=== PATIENT | female | born 1990 | race Hispanic/Latino ===

== ENCOUNTER 2018-04-18 07:39 | Emergency (ER) | payer BC, SELFPAY ==
[2018-04-18 08:30] LABS: Absolute Lymphocytes (CBC) 1.2 K/uL (0.7-4.9); Absolute Monocytes 0.5 K/uL (0.1-1.3); Basophils % 0.6 % (0-1.3); Eosinophils % 0.5 % (0-4.4); Hematocrit 40.8 % (36.0-45.0); Lymphocytes % 10.9 % (15.3-44.8); MCH 31.7 pg (27.0-35.0); MCV 91.3 fL (80-100); MPV 9.7 fL (7.6-11.3); Monocytes % 4.6 % (3.3-12.3); RBC Red Blood Cell Count 4.47 M/uL (3.86-4.86)
[2018-04-18 08:31] LABS: Potassium 3.5 mEq/L (3.6-5.0)
[2018-04-18 08:38] LABS: Albumin 4.4 g/dL (3.2-5.5); Bilirubin Direct 0.1 mg/dL (0-0.2); Protein, Total 7.6 g/dL (6.0-8.3)
[2018-04-18 08:50] LABS: Urine Blood 3+ (NEG); Urine Glucose NEGATIVE (NEG); Urine Protein 2+ (NEG); Urine Specific Gravity >1.030 (1.005-1.030)
[2018-04-18] MEDS ORDERED: CEFTRIAXONE/SWI 1gm 1 GM/10 ML SYR ONE (08:52)
--- NOTE | 2018-04-18 09:11 | RAD REPORT ---
EXAM DESCRIPTION: CT - Stone Protocol - 04/18/2018 8:55 am CLINICAL HISTORY: Right flank pain, nausea and vomiting, dysuria, history of kidney stones COMPARISON: None. TECHNIQUE: Axial 5 mm thick images were obtained without oral or IV contrast. The [id number] span s the entirety of the system partially obscuring uppermost abdomen and lung bases. All CT scans are performed using dose optimization technique as appropriate and may include automated exposure control or mA/KV adjustment according to patient size. FINDINGS: Moderate severity right-sided hydronephrosis is present secondary to a 5 mm stone at the U VJ. Stone lodged colitis is to the bladder wall or may be partially protruding into the lumen of the urinary bladder. No left-sided hydronephrosis. No additional right-sided calculi. There is a punctate 1 mm calyx calcification on the left. No suspicious renal masses. Isodense masses and pyelonephritis are not excluded on a stone protocol CT scan. Urinary bladder is mostly contracted limiting assessme nt. Hare do appear to be slightly thickened and shaggy in appearance. Cystitis would be possible. Imaged portions of the liver, spleen and pancreas show no suspicious findings on non-contrast imaging . No gallbladder or biliary tree abnormality identified. No significant adrenal finding. No suspicious bowel findings. Uterus shows a prominent lobulated contour without overall enlargement of the uterus. This is likely a multi fibroid uterus. Ovaries appear to be within normal limits. Ovar ies and uterus are generally isodense to the surrounding on opacified small bowel loops and not fully assessed. No hernia, mass or bulky lymphadenopathy noted. No free air, free fluid or pneumatosis. No significant bony abnormality. IMPRESSION: Moderate severity right-sided hydronephrosis secondary to a 5 mm stone at the UVJ. Calci fication is within the bladder wall protruding somewhat into the lumen of the bladder. Punctate 1 mm calyx calcification on the left with no left-sided hydronephrosis. Isodense masses and pyelonephritis are not excluded on stone protocol technique. Hare of the contracted urinary bladder are slightly thickened and shaggy. This is likely artifact of contraction. Cystitis is not excluded.
[2018-04-18 09:22] LABS: Urine Bacteria >50 /HPF (<20); Urine Culture Reflex Order NOT NEEDED; Urine RBC >50 /HPF (NONE SEEN)
--- NOTE | 2018-04-18 09:31 | ER ---
Nurse's Notes [facility] Name: Francisco Palomino Age: 28 yrs Sex: Female : 1990 Arrival Date: 04/18/2018 Time: 07:42 Bed 13 Private MD: Out, [facility] Diagnosis: Abdominal tenderness;Hydronephrosis with renal and ureteral calculous obstruction;Hypokalemia Presentation: 04/18 07:56 Presenting complaint: Patient states: has had right flank pain, nausea, vomiting since iw this morning, also c/o urinary frequency since this a.m., has hx of kidney stones, feels similar. Transition of care: patient was not received from another setting of care. Onset of symptoms was April 18, 2018. Risk Assessment: Do you want to hurt yourself or someone else? Patient reports no desire to harm self or others. Initial Sepsis Screen: Does the patient meet any 2 criteria? No. Patient's initial sepsis screen is negative. Does the patient have a suspected source of infection? No. Patient's initial sepsis screen is negative. Care prior to arrival: None. 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 - Social history:: Smoking status: Patient/guardian denies using tobacco. - Ebola Screening: : Patient negative for fever greater than or equal to 101.5 degrees Fahrenheit, and additional compatible Ebola Virus Disease symptoms Patient denies exposure to infectious person Patient denies travel to an Ebola-affected area in the 21 days before illness onset No symptoms or risks identified at this time. - Family history:: not pertinent. Screenin:45 Abuse screen: Denies threats or abuse. Denies injuries from another. Nutritional ph screening: No deficits noted. Tuberculosis screening: No symptoms or risk factors identified. Fall Risk None identified. Assessment: 08:30 General: Appears in no apparent distress. comfortable, slender, well groomed, Behavior ph is calm, cooperative, appropriate for age, Denies fever, feeling ill. Pain: Complains of pain in right low back Pain radiates to right lower quadrant Pain currently is 5 out of 10 on a pain scale. Neuro: Level of Consciousness is awake, alert, obeys commands, Oriented to person, place, time, situation. Cardiovascular: Capillary refill < 3 seconds Patient's skin is warm and dry. Respiratory: Airway is patent Respiratory effort is even, unlabored, Respiratory pattern is regular, symmetrical. GI: Abdomen is flat, non-distended, Bowel sounds present X 4 quads. Abd is soft and non tender X 4 quads. Reports lower abdominal pain, nausea, vomiting, Patient currently denies diarrhea. : Reports burning with urination, pain in right flank(s), lower quadrant(s) with urination, urinary frequency. Derm: Skin is intact, is healthy with good turgor, Skin is pink, warm \\T\\ dry. Musculoskeletal: Circulation, motion, and sensation intact. Range of motion: intact in all extremities. 08:46 Reassessment: Patient appears in no apparent distress at this time. Patient and/or ph family updated on plan of care and expected duration. Pain level reassessed. Patient is alert, oriented x 3, equal unlabored respirations, skin warm/dry/pink. Pt reports that pain has improved to 1/10, denies nausea, awaiting CT scan, family at bedside. 10:15 Reassessment: Patient appears in no apparent distress at this time. Patient and/or ph family updated on plan of care and expected duration. Pain level reassessed. Patient is alert, oriented x 3, equal unlabored respirations, skin warm/dry/pink. Pt reports that pain remains 1/10 and denies nausea, discharged home with family. Vital Signs: 07:58 BP 126 / 90; Pulse 82; Resp 18 S; Temp 97.6; Pulse Ox 100% on R/A; Weight 54.43 kg; iw Height 4 ft. 11 in. (149.86 cm); Pain 10/10; 08:45 BP 111 / 99; Pulse 79; Resp 18; Pulse Ox 99% on R/A; ph 10:15 BP 115 / 87; Pulse 76; Resp 18; Temp 97.3; Pulse Ox 99% on R/A; Pain 1/10; ph 07:58 Body Mass Index 24.24 (54.43 kg, 149.86 cm) iw ED Course: 07:42 Patient arrived in ED. sb2 07:43 Out, of [facility] is Private Physician. sb2 07:48 Franklyn Kim MD is Attending Physician. josé miguel 07:57 Triage completed. iw 07:58 Arm band placed on. iw 08:02 Qing German, RN is Primary Nurse. ph 08:10 Radiology exam delayed due to test not completed at this time. eh 08:25 Initial lab(s) drawn, by me, sent to lab. Inserted saline lock: 20 gauge in right ph antecubital area, using aseptic technique. Blood collected. 08:44 CT completed. Patient tolerated procedure well. Patient moved to CT via wheelchair. Patient moved back from CT. 08:45 Patient has correct armband on for positive identification. Placed in gown. Bed in low ph position. Call light in reach. Side rails up X 1. Pulse ox on. NIBP on. Warm blanket given. 08:55 CT Stone Protocol In Process Unspecified. EDMS 09:29 Mansi Galan MD is Referral Physician. josé miguel 10:15 No provider procedures requiring assistance completed. IV discontinued, intact, ph bleeding controlled, No redness/swelling at site. Pressure dressing applied. Administered Medications: 08:33 Drug: NS 0.9% 1000 ml Route: IV; Rate: 1 bolus; Site: right antecubital; ph 10:14 Follow up: Response: No adverse reaction; IV Status: Completed infusion ph 08:33 Drug: TORadol 30 mg Route: IVP; Site: right antecubital; ph 08:41 Follow up: Response: No adverse reaction; Pain is decreased ph 08:34 Drug: Zofran 4 mg Route: IVP; Site: right antecubital; ph 08:40 Follow up: Response: No adverse reaction; Nausea is decreased ph 10:00 Drug: Rocephin - (cefTRIAXone) 1 grams Route: IVPB; Infused Over: 30 mins; Site: right ph antecubital; 10:14 Follow up: Response: No adverse reaction; IV Status: Completed infusion ph 10:00 Drug: Potassium Chloride 20 mEq Route: PO; ph 10:14 Follow up: Response: No adverse reaction ph 10:00 Drug: Flomax 0.4 mg Route: PO; ph 10:14 Follow up: Response: No adverse reaction ph Outcome: 09:29 Discharge ordered by . josé miguel 10:16 Discharged to home ambulatory, with family. ph 10:16 Condition: good 10:16 Discharge instructions given to patient, Instructed on discharge instructions, follow up and referral plans. medication usage, Demonstrated understanding of instructions, follow-up care, medications, Prescriptions given X 3. 10:16 Patient left the ED. ph Addendum: 04/22/2018 07:44 Addendum: Culture Results: Positive urine culture. No further action required. Bacteria f c sensitive to prescribed antibiotic. Signatures: Dispatcher [employer] EDMS Franklyn Kim MD MD cha Hagler, Pratibha Ya Felicia RN RN Maricruz Brantley RN RN iw Hall, Patricia, RN RN lilia Marvin, Tabitha stone2
--- NOTE | 2018-04-18 09:31 | EDPHYS ---
Physician Documentation [facility] Name: Francisco Palomino Age: 28 yrs Sex: Female : 1990 Arrival Date: 04/18/2018 Time: 07:42 Bed 13 Private MD: Out, [facility] ED Physician Franklyn Kim HPI: 04/18 08:07 This 28 yrs old Female presents to ER via Ambulatory with complaints of josé miguel Abdominal Pain. 08:07 The patient complains of pain in the right mid back and right low back. The pain josé miguel radiates to the right mid back and right low back. Onset: The symptoms/episode began/occurred 1 week(s) ago. Modifying factors: The symptoms are alleviated by nothing. the symptoms are aggravated by nothing. Associated signs and symptoms: The patient has no apparent associated signs or symptoms. Severity of pain: At its worst the pain was mild moderate. The patient has not experienced similar symptoms in the past. 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 - Social history:: Smoking status: Patient/guardian denies using tobacco. - Ebola Screening: : Patient negative for fever greater than or equal to 101.5 degrees Fahrenheit, and additional compatible Ebola Virus Disease symptoms Patient denies exposure to infectious person Patient denies travel to an Ebola-affected area in the 21 days before illness onset No symptoms or risks identified at this time. - Family history:: not pertinent. ROS: 08:07 Constitutional: Negative for fever, chills, and weight loss, Eyes: Negative for injury, josé miguel pain, redness, and discharge, ENT: Negative for injury, pain, and discharge, Neck: Negative for injury, pain, and swelling, Cardiovascular: Negative for chest pain, palpitations, and edema, Respiratory: Negative for shortness of breath, cough, wheezing, and pleuritic chest pain, Abdomen/GI: Negative for abdominal pain, nausea, vomiting, diarrhea, and constipation, : Negative for injury, bleeding, discharge, and swelling, MS/Extremity: Negative for injury and deformity, Skin: Negative for injury, rash, and discoloration, Neuro: Negative for headache, weakness, numbness, tingling, and seizure, Psych: Negative for depression, anxiety, suicide ideation, homicidal ideation, and hallucinations, Allergy/Immunology: Negative for hives, rash, and allergies, Endocrine: Negative for neck swelling, polydipsia, polyuria, polyphagia, and marked weight changes, Hematologic/Lymphatic: Negative for swollen nodes, abnormal bleeding, and unusual bruising. 08:07 Back: Positive for pain at rest, flank pain. Exam: 08:07 Constitutional: This is a well developed, well nourished patient who is awake, alert, josé miguel and in no acute distress. Head/Face: Normocephalic, atraumatic. Eyes: Pupils equal round and reactive to light, extra-ocular motions intact. Lids and lashes normal. Conjunctiva and sclera are non-icteric and not injected. Cornea within normal limits. Periorbital areas with no swelling, redness, or edema. ENT: Nares patent. No nasal discharge, no septal abnormalities noted. Tympanic membranes are normal and external auditory canals are clear. Oropharynx with no redness, swelling, or masses, exudates, or evidence of obstruction, uvula midline. Mucous membranes moist. Neck: Trachea midline, no thyromegaly or masses palpated, and no cervical lymphadenopathy. Supple, full range of motion without nuchal rigidity, or vertebral point tenderness. No Meningismus. Chest/axilla: Normal chest wall appearance and motion. Nontender with no deformity. No lesions are appreciated. Cardiovascular: Regular rate and rhythm with a normal S1 and S2. No gallops, murmurs, or rubs. Normal PMI, no JVD. No pulse deficits. Respiratory: Lungs have equal breath sounds bilaterally, clear to auscultation and percussion. No rales, rhonchi or wheezes noted. No increased work of breathing, no retractions or nasal flaring. Abdomen/GI: Soft, non-tender, with normal bowel sounds. No distension or tympany. No guarding or rebound. No evidence of tenderness throughout. Skin: Warm, dry with normal turgor. Normal color with no rashes, no lesions, and no evidence of cellulitis. MS/ Extremity: Pulses equal, no cyanosis. Neurovascular intact. Full, normal range of motion. Neuro: Awake and alert, GCS 15, oriented to person, place, time, and situation. Cranial nerves II-XII grossly intact. Motor strength 5/5 in all extremities. Sensory grossly intact. Cerebellar exam normal. Normal gait. Psych: Awake, alert, with orientation to person, place and time. Behavior, mood, and affect are within normal limits. 08:07 Back: pain, that is mild, that is moderate, ROM is normal, normal spinal alignment noted, CVA tenderness, that is mild, that is moderate, is noted on the right. Vital Signs: 07:58 BP 126 / 90; Pulse 82; Resp 18 S; Temp 97.6; Pulse Ox 100% on R/A; Weight 54.43 kg; iw Height 4 ft. 11 in. (149.86 cm); Pain 10/10; 08:45 BP 111 / 99; Pulse 79; Resp 18; Pulse Ox 99% on R/A; ph 10:15 BP 115 / 87; Pulse 76; Resp 18; Temp 97.3; Pulse Ox 99% on R/A; Pain 1/10; ph 07:58 Body Mass Index 24.24 (54.43 kg, 149.86 cm) iw MDM: 07:49 Patient medically screened. [facility] 04/18 07:55 Order name: Amylase, Serum; Complete Time: 08:51 [facility] 04/18 07:55 Order name: Basic Metabolic Panel; Complete Time: 08:51 [facility] 04/18 07:55 Order name: CBC with Diff; Complete Time: 08:51 [facility] 04/18 07:55 Order name: Creatinine for Radiology; Complete Time: 08:51 [facility] 04/18 07:55 Order name: Hepatic Function; Complete Time: 08:51 [facility] 04/18 07:55 Order name: Lipase; Complete Time: 08:51 [facility] 04/18 07:55 Order name: Urine Microscopic Only; Complete Time: 09:29 [facility] 04/18 08:07 Order name: CT Stone Protocol; Complete Time: 09:29 [facility] 04/18 08:10 Order name: Urine Culture 04/18 08:38 Order name: Urine Dipstick--Ancillary (enter results); Complete Time: 08:51 [facility] 04/18 08:38 Order name: Urine --Ancillary (enter results); Complete Time: 08:51 [facility] 04/18 07:55 Order name: Urine Test (obtain specimen); Complete Time: 08:34 [facility] 04/18 07:55 Order name: IV Saline Lock; Complete Time: 08: [facility] 04/18 07:55 Order name: Labs collected and sent; Complete Time: 08: [facility] 04/18 07:55 Order name: Urine Dipstick-Ancillary (obtain specimen); Complete Time: 08:34 [facility] Administered Medications: 08:33 Drug: NS 0.9% 1000 ml Route: IV; Rate: 1 bolus; Site: right antecubital; ph 10:14 Follow up: Response: No adverse reaction; IV Status: Completed infusion ph 08:33 Drug: TORadol 30 mg Route: IVP; Site: right antecubital; ph 08:41 Follow up: Response: No adverse reaction; Pain is decreased ph 08:34 Drug: Zofran 4 mg Route: IVP; Site: right antecubital; ph 08:40 Follow up: Response: No adverse reaction; Nausea is decreased ph 10:00 Drug: Rocephin - (cefTRIAXone) 1 grams Route: IVPB; Infused Over: 30 mins; Site: right ph antecubital; 10:14 Follow up: Response: No adverse reaction; IV Status: Completed infusion ph 10:00 Drug: Potassium Chloride 20 mEq Route: PO; ph 10:14 Follow up: Response: No adverse reaction ph 10:00 Drug: Flomax 0.4 mg Route: PO; ph 10:14 Follow up: Response: No adverse reaction ph Disposition: 04/18/18 09:29 Discharged to Home. Impression: Abdominal tenderness, Hydronephrosis with renal and ureteral calculous obstruction, Hypokalemia. - Condition is Stable. - Discharge Instructions: Abdominal Pain, Adult, Potassium Content of Foods, Kidney Stones, Nausea and Vomiting, Kidney Stones, [id number], Abdominal Pain, Adult, [id number], Hydronephrosis. - Prescriptions for Cipro 250 mg Oral Tablet - take 1 tablet by ORAL route every 12 hours; 14 tablet. Tylenol- Codeine #3 300-30 mg Oral Tablet - take 2 tablet by ORAL route every 6 hours As needed; 30 tablet. Flomax 0.4 mg Oral Capsule, Sust. Release 24 hr - take 1 capsule by ORAL route once daily 1/2 hour following the same meal each day; 30 capsule. - Medication Reconciliation Form, Thank You Letter, Antibiotic Education, Prescription Opioid Use form. - Follow up: Private Physician; When: 2 - 3 days; Reason: Recheck today's complaints, Continuance of care, Re-evaluation by your physician. Follow up: Mansi Galan; When: 2 - 3 days; Reason: Recheck today's complaints, Re-evaluation by your physician. - Problem is new. - Symptoms have improved. Signatures: Dispatcher [employer] EDFranklyn Wakefield MD MD cha Williams, Irene, RN RN iw Qing German RN RN ph Corrections: (The following items were deleted from the chart) 10:16 09:29 04/18/2018 09:29 Discharged to Home. Impression: Abdominal tenderness; ph Hydronephrosis with renal and ureteral calculous obstruction; Hypokalemia. Condition is Stable. Discharge Instructions: Abdominal Pain, Adult, Kidney Stones, Nausea and Vomiting, Kidney Stones, [id number], Abdominal Pain, Adult, [id number], Hydronephrosis. Prescriptions for Cipro 250 mg Oral Tablet - take 1 tablet by ORAL route every 12 hours; 14 tablet, Tylenol-Codeine #3 300-30 mg Oral Tablet - take 2 tablet by ORAL route every 6 hours As needed; 30 tablet, Flomax 0.4 mg Oral Capsule, Sust. Release 24 hr - take 1 capsule by ORAL route once daily 1/2 hour following the same meal each day; 30 capsule. and Forms are Medication Reconciliation Form, Thank You Letter, Antibiotic Education, Prescription Opioid Use. Follow up: Private Physician; When: 2 - 3 days; Reason: Recheck today's complaints, Continuance of care, Re-evaluation by your physician. Follow up: Mansi Galan; When: 2 - 3 days; Reason: Recheck today's complaints, Re-evaluation by your physician. Problem is new. Symptoms have improved. josé miguel
[2018-04-18] MEDS ORDERED: TAMSULOSIN 0.4 MG SR CAP ONE (09:50)
[2018-04-18] MEDS ORDERED: POTASSIUM CL SA 10 MEQ TAB PO ONE (09:50)
[2018-04-18] MEDS ORDERED: MAGNESIUM SULFATE 1 gm IVPB 1 GM/100 ML BAG IV ONE (10:09)
[2018-04-18] MEDS ORDERED: NS KCL 20MEQ 1,000 ML IV ONE (10:09)
[2018-04-18] MEDS ORDERED: NA CHLORIDE 0.9% 3,000 ML ONE (10:09)
== END 2018-04-18 10:16 | disposition home or self-care (01) ==
LOC: ER 07:39
DX: N13.2 Hydronephrosis with renal and ureteral calculous obstruction (principal); E87.6 Hypokalemia; Z88.0 Allergy status to penicillin
CPT/HCPCS: 36415; 74176; 76377; 80048; 80076; 81003; 81015; 81025; 82150; 83690; 85025; 87077; 87086; 87088; 87186; 96361; 96374; 96375; 99284; J0696; J3475; J7030